=== PATIENT | male | born 1970 | race Caucasian/White ===

== ENCOUNTER → 2018-05-20 12:54 | Outpatient (CLI) | payer BC, SELFPAY ==
--- NOTE | 2018-05-20 13:09 | RAD_ITS ---
STUDY: X-RAY CHEST REASON FOR EXAM: Male, 47 years old. 5 day history of cough. TECHNIQUE: PA and lateral views of the chest. COMPARISON: None. FINDINGS: Right upper lobe consolidation into both the right upper lobe pneumonia. Mild increased markings are also seen in the right infrahilar region. There is no demonstrated pleural abnormality. Normal size heart. Normal mediastinum and leticia. Normal visualized pulmonary arteries. Normal visualized aortic arch and descending thoracic aorta. Normal visualized thoracic spine. Normal visualized ribs, clavicles, and shoulders. There is no demonstrated abnormality of the visualized soft tissue structures of the upper abdomen. RAD/Chest PA and Lateral IMPRESSION: Right upper lobe consolidation. Increased markings in the right infrahilar region. Follow-up is recommended. Electronically Signed: Jayro Parra MD at 13:35 EDT Tel [phone], Service support ,
[2018-05-20 13:57] LABS: Absolute Neutrophil Count 6.1 X10^3/uL (2.0-7.7); Basophil# 0.02 X10^3/uL; Basophil% 0.2 % (0-1); Eosinophil# 0.02 X10^3/uL; Eosinophils% 0.2 % (0-5); Hematocrit 38.6 % (40-54); Hemoglobin 13.7 g/dl (13.0-16.5); Mean Corp Hgb Conc 35.5 g/gl (32-36); Mean Corpuscular Hgb 31.1 pg (27.0-32.0); Mean Corpuscular Volume 87.7 fL (80-94); Mean Platelet Vol. 9.1 fl (6.2-12.0); Monocyte# 1.28 X10^3/uL; Monocyte% 15.1 % (0-10); Neutrophil # 6.05 X10^3/uL (2.7-7.7); Neutrophil % 71.4 % (47-70); Platelet Count 174 K/mm3 (150-450); RBC Distribution Width CV 12.4 % (11.6-14.6); RBC Distribution Width SD 39.2 fl (35.1-43.9); White Blood Count 8.5 K/mm3 (4.4-11.0)
[2018-05-20 13:58] LABS: POSITIVE COUNT NO; POSITIVE DIFFERENTIAL NO; POSITIVE MORPHOLOGY NO
== END ==
PROVIDERS: Family Provider Family Medicine; PCP Family Medicine; Visit Provider Family Medicine
DX: R05 Cough (principal); R50.9 Fever, unspecified
CPT/HCPCS: 36415; 71046; 85025; 87804

== ENCOUNTER → 2019-03-04 | Outpatient (CLI) | payer BC, SELFPAY ==
[2018-12-03 15:51] VITALS: BMI 27.8
--- NOTE | 2019-03-04 09:52 | PFTCOMP ---
COMPLETE PULMONARY FUNCTION TEST INTERPRETATION Brief HPI: Patient is a 48 year old male, currently under the care of myself, who presents to [facility] for complete pulmonary function tests secondary to diagnosis of dyspnea on exertion. Respiratory therapist reports good effort and reproducible results. Interpretation: Forced expiration spirometry shows no large airways obstructive ventilatory defect with an FEV1 of 94% predicted. There is no significant bronchodilator response by strict ATS criteria. Spirograms are of good quality and plateau normally. The respiratory flow volume loop shows a normal pattern. Lung volumes by body plethysmography show a normal total lung capacity at 5.88 L, 86% predicted. All other lung volumes are within normal limits. Diffusion capacity by carbon monoxide is normal at 114% predicted. The airway resistance is normal. No previous pulmonary function tests were available for review. Impression: Essentially normal PFT. Lung volumes are at the lower limit of normal with preserved diffusion capacity, so early musculoskeletal limitation cannot be excluded.
--- NOTE | 2019-03-04 09:55 | PFTCOMP_ITS ---
COMPLETE PULMONARY FUNCTION TEST INTERPRETATION Brief HPI: Patient is a 48 year old male, currently under the care of myself, who presents to [facility] for complete pulmonary function tests secondary to diagnosis of dyspnea on exertion. Respiratory therapist reports good effort and reproducible results. Interpretation: Forced expiration spirometry shows no large airways obstructive ventilatory defect with an FEV1 of 94% predicted. There is no significant bronchodilator re sponse by strict ATS criteria. Spirograms are of good quality and plateau normally. The respiratory flow volume loop shows a normal pattern. Lung volumes by body plethysmography show a normal total lung capacity at 5.88 L, 86% predicted. All other lung volumes are within normal limits. Diffusion capacity by carbon monoxide is normal at 114% predicted. The airway resistance is normal. No previous pulmonary function tests were available for review. Impression: Essentially normal PFT. Lung volumes are at the lower limit of normal with preserved diffusion capacity, so early musculoskeletal limitation cannot be excluded.
[2019-03-08 09:06] LABS: Testosterone, Free 14.47 ng/dL (5.00-21.00)
[2019-03-08 11:48] LABS: Testosterone, % Free 2.65 % (1.50-4.20); Testosterone, Total 546 ng/dL (264-916)
== END | disposition home or self-care (01) ==
PROVIDERS: Family Provider Family Medicine; PCP Family Medicine; Referring Provider Family Medicine; Visit Provider Family Medicine
DX: R06.00 Dyspnea, unspecified (principal); R53.83 Other fatigue; F32.9 Major depressive disorder, single episode, unspecified
CPT/HCPCS: 36415; 84402; 84403; 94060; 94726; 94729

== ENCOUNTER → 2021-07-25 14:04 | Outpatient (CLI) | payer OTHER, SELFPAY ==
[2021-07-16 16:24] VITALS: BMI 26.9
--- NOTE | 2021-07-25 14:08 | ECHOD_ITS ---
Reason For Study: Possible Bicuspid AV Procedure This was a 2D Doppler, Color Flow transthoracic echocardiogram. The exam was of adequate technical quality. Exam performed in department. Left Ventricle Normal LV size. Left ventricular systolic function is normal. The estimated ejection fraction is 60 %. No evidence for diastolic dysfunction. No regional wall motion abnormalities noted. Right Ventricle Normal RV size. Normal systolic function. Atria The left atrium is mildly enlarged. The right atrium is mildly enlarged. No doppler evidence for ASD. Mitral Valve There is no mitral annular calcification. Normal mitral valve. Trivial mitral valve insufficiency. Tricuspid Valve Normal tricuspid valve. Mild tricuspid valve insufficiency. Right ventricular systolic pressure estimated to be 19 mmHg. Aortic Valve Trisinus/trileaflet aortic valve. Mild focal aortic valve thickening. Mild focal aortic valve calcification. Pulmonic Valve The pulmonic valve is not well visualized. Mild (1+) pulmonic valve insufficiency. Great Vessels The aortic root is not well visualized. Pericardium/Pleural No pericardial effusion. MMode/2D Measurements & Calculations LVIDd: 5.5 cm IVSd: 1.2 cm LA dimension: 4.3 cm LVIDs: 3.5 cm LVPWd: 0.82 cm RVDd: 4.3 cm FS: 37.1 % LAV(MOD-bp): 69.8 ml LA A4 area: 22.0 cm2 RA A4 area: 21.2 cm2 LAV(MOD-bp) Indexed: 34.6 ml/m2 LAV(MOD-sp2): 63.0 ml LAV(MOD-sp4): 68.3 ml Time Measurements MV dec time: 0.23 sec Doppler Measurements & Calculations MV E max josh: 93.6 cm/sec Lat Peak E' Josh: 12.3 cm/sec Med Peak E' Josh: 10.4 cm/sec MV A max josh: 66.1 cm/sec E/E' lat: 7.6 E/E' med: 9.0 MV E/A: 1.4 MV V2 max: 94.5 cm/sec MV P1/2t max josh: 94.5 cm/sec Ao V2 max: 123.1 cm/sec MV max P.6 mmHg MV P1/2t: 111.6 msec Ao max P.1 mmHg MV V2 mean: 41.5 cm/sec MV dec slope: 247.9 cm/sec2 MV mean P.86 mmHg MVA(P1/2t): 2.0 cm2 MV V2 VTI: 33.9 cm LV V1 max: 102.7 cm/sec PA V2 max: 119.4 cm/sec TR max josh: 198.8 cm/sec LV V1 max P.2 mmHg TR max P.8 mmHg ECHO/Echo Complete Interpretation Summary Left ventricular systolic function is normal. The estimated ejection fraction is 60 %. The left atrium is mildly enlarged. The right atrium is mildly enlarged. Trivial mitral valve insufficiency. Mild tricuspid valve insufficiency. Mild (1+) pulmonic valve insufficiency. Right ventricular systolic pressure estimated to be 19 mmHg. No evidence for diastolic dysfunction. Comment: Based upon the 2D echocardiographic images obtained there appears to b e a tricuspid appearing aortic valve with mild thickening and calcification involving the non coronary cusp. Ordering Physician: Lee Tate Referring Physician: Chepe Logan Performed By: Bill Anthony RCS
== END ==
PROVIDERS: PCP Family Medicine; Referring Provider Internal Medicine Cardiovascular Disease; Visit Provider Internal Medicine Cardiovascular Disease
DX: R55 Syncope and collapse (principal); Z86.79 Personal history of other diseases of the circulatory system
CPT/HCPCS: 93306

== ENCOUNTER → 2021-09-28 | Outpatient (CLI) | payer OTHER, SELFPAY ==
[2021-11-11 16:05] LABS: Source Not Provided
== END | disposition home or self-care (01) ==
PROVIDERS: PCP Family Medicine; Referring Provider Family Medicine; Visit Provider Family Medicine
DX: N20.9 Urinary calculus, unspecified (principal)
CPT/HCPCS: 82360

== ENCOUNTER → 2021-10-11 08:36 | Outpatient (CLI) | payer OTHER, SELFPAY ==
[2021-10-11 10:04] LABS: PTHIN 18.6 pg/mL (18.4-80.1)
[2021-10-11 10:07] LABS: Vitamin D,25 Hydroxy 33.8 ng/mL
[2021-10-14 10:38] LABS: Vitamin D 1,25-Dihydroxy 48.5 pg/mL (19.9-79.3)
== END ==
PROVIDERS: PCP Family Medicine; Referring Provider Family Medicine; Visit Provider Family Medicine
DX: E83.52 Hypercalcemia (principal)
CPT/HCPCS: 36415; 82306; 82330; 82652; 83970

== ENCOUNTER 2022-06-30 21:02 | Emergency (ER) | payer OTHER, SELFPAY ==
[2022-06-30 21:03] VITALS: BP 130/85; PULSE 55; RESP 16; TEMP 36.3; O2SAT 100; BMI 26.4
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
--- NOTE | 2022-06-30 21:20 | RAD_ITS ---
INDICATION: trauma. attention left long finger EXAMINATION/TECHNIQUE: X-RAY - LEFT XR Hand Min 3 Views 3 VIEWS COMPARISON: None. FINDINGS: SOFT TISSUES: Mild soft tissue swelling third finger. No radiopaque foreign body. BONES/JOINTS: Dorsal dislocation base of the middle phalanx third finger positioned posterior to the proximal phalangeal head. No visible fracture or fracture fragment at this time. Preservation of the joint space and no degenerative bony proliferative changes. No sclerotic or destructive changes observed. RAD/Hand Min 3 Views IMPRESSION: Third finger proximal interphalangeal joint dorsal dislocation. Recommend repeat x-rays following relocation. Electronically Signed: Fermin Cortés DO at 21:55 EDT ,
[2022-06-30] MEDS: Ibuprofen 600 MG Tablet PO (21:21)
== END 2022-06-30 21:46 | disposition home or self-care (01) ==
PROVIDERS: Emergency Provider Emergency Medicine; PCP Family Medicine; Visit Provider Emergency Medicine
DX: S63.283A Dislocation of proximal interphalangeal joint of left middle finger, initial encounter (principal); S80.11XA Contusion of right lower leg, initial encounter; F90.9 Attention-deficit hyperactivity disorder, unspecified type; Q23.1 Congenital insufficiency of aortic valve; V86.05XA Driver of 3- or 4- wheeled all-terrain vehicle (ATV) injured in traffic accident, initial encounter
CPT/HCPCS: 26770; 73130; 99283

== ENCOUNTER → 2023-10-02 | Outpatient (CLI) | payer OTHER, SELFPAY ==
[2023-10-02 12:09] LABS: Absolute Lymphocyte Count 1.32 X10^3/uL (0.83-4.51); Absolute Neutrophil Count 3.9 X10^3/uL (2.0-7.7); Basophil# 0.06 X10^3/uL; Basophil% 0.9 % (0-1); Eosinophil# 0.43 X10^3/uL; Eosinophils% 6.7 % (0-5); Hematocrit 43.2 % (40-54); Hemoglobin 14.4 g/dL (13.0-16.5); Lymphocyte # 1.32 X10^3/ul (0.83-4.51); Lymphocyte % 20.5 % (19-41); Mean Corp Hgb Conc 33.3 g/dL (32-36); Mean Corpuscular Hgb 30.9 pg (27.0-32.0); Mean Corpuscular Volume 92.7 fL (80-94); Mean Platelet Vol. 9.5 fl (6.2-12.0); Monocyte# 0.65 X10^3/uL; Monocyte% 10.1 % (0-10); NRBC Flagged by Analyzer 0 % (0-5); Neutrophil # 3.86 X10^3/uL (2.7-7.7); Neutrophil % 59.9 % (47-70); Platelet Count 266 K/mm3 (150-450); RBC Distribution Width CV 12.3 % (11.6-14.6); RBC Distribution Width SD 41.9 fl (35.1-43.9); Red Blood Count 4.66 M/mm3 (4.6-6.2); White Blood Count 6.4 K/mm3 (4.4-11.0)
[2023-10-02 12:49] LABS: ALB/GLOB Ratio 1.1 RATIO (0.9-2.4); AST(SGOT) 21 U/L (15-37); Alanine Aminotransfer ALT/SGPT 30 U/L (16-61); Albumin, Serum 3.9 g/dL (3.2-5.0); Alkaline Phosphatase 65 U/L (45-117); Anion Gap 4 (5-15); BUN 18 mg/dL (7-18); Calcium,Total 9.1 mg/dL (8.5-10.1); Chloride 104 mmol/L (98-107); Cholesterol 195 mg/dL (200); Creatinine, Serum 0.95 mg/dL (0.70-1.30); EST Glomerular Filtration Rate 89 mL/min (>60); Est Glom Filt Rate - Afr Amer 108 mL/min (>60); Globulin 3.7 g/dL (2.2-4.2); Glucose 95 mg/dL (74-106); High Density Lipoprotein 52 mg/dL; PSA,Total - Annual Screen 0.43 ng/mL (0.00-4.00); Potassium 4.1 mmol/L (3.5-5.1); Protein, Total 7.6 g/dL (6.4-8.2); Sodium Level 139 mmol/L (136-145); Triglycerides 50 mg/dL; Very Low Density Lipoprotein 10 mg/dL (5-40)
== END | disposition home or self-care (01) ==
LOC: BFHLAB 09:57
PROVIDERS: PCP Family Medicine; Referring Provider Family Medicine; Visit Provider Family Medicine
DX: Z00.00 Encounter for general adult medical examination without abnormal findings (principal); Z12.5 Encounter for screening for malignant neoplasm of prostate
CPT/HCPCS: 36415; 80053; 80061; 84153; 85025; G0103

== ENCOUNTER 2024-01-13 08:30 | Day surgery (SDC) | payer OTHER, SELFPAY ==
[2024-01-13] VITALS (7 sets, daily range): BP systolic 84–150; BP diastolic 46–94; PULSE 58–67; RESP 16; TEMP 36.1–36.5; O2SAT 96–100; BMI 26.5
--- NOTE | 2024-01-13 08:50 | H&P.OPEN ---
[facility] - General General Date of Service: 01/13/24 [facility] Narrative HOA MCCLAIN, is a 53 M who presents for screening colonoscopy. Patient denies any family history of colon cancer. Patient has bowel movements daily denies any blood. Patient denies any chronic abdominal pain nausea or vomiting, reflux. [facility] Medical History (Updated 01/12/24 @ 08:00 by Rylee Glasgow) ADHD (attention deficit hyperactivity disorder) Alcohol use Asthma Bicuspid aortic valve Cardiology follow-up encounter Glaucoma History of atrial fibrillation History of echocardiogram History of stress test History of varicocele Kidney stones Non-smoker Seasonal allergies Wears glasses Home Medications multivitamin 1 tab PO QDAY 11/17/17 [History Last Taken Unknown] albuterol sulfate 90 mcg/actuation aerosol inhaler (ProAir HFA) 2 puff inhalation DAILY PRN shortness of breath or wheezing 03/02/20 [History Last Taken Unknown] loratadine 10 mg tablet (Claritin) 10 mg PO QDAY 03/02/20 [History Last Taken Unknown] montelukast 10 mg tablet 10 mg PO DAILY 07/17/22 [History Last Taken Unknown] omega 3-dee-kyt-fish oil 60 mg-90 mg-500 mg capsule (Fish Oil) 1 cap PO DAILY 07/17/22 [History Last Taken 01/05/24] budesonide-formoterol HFA 80 mcg-4.5 mcg/actuation aerosol inhaler (Symbicort) 2 puff inhalation DAILY PRN SOB 12/09/23 [History Last Taken Unknown] Allergy/AdvReac Type Severity Reaction Status Date / Time No Known Allergies Allergy Verified 01/13/24 08:55 Family History (Updated 12/09/23 @ 14:01 by Jada Tavarez) Mother Depression Sister Breast cancer Grandfather CAD (coronary artery disease) CABG Father Colon polyps Surgical History (Updated 01/12/24 @ 08:00 by Rylee Glasgow) History of vasectomy Social History (Updated 12/09/23 @ 14:02 by Jada Tavarez) household members: spouse and children current occupational status: employed current occupation: works in [employer] Smoking Status: Never smoker alcohol intake: current alcohol intake frequency: holidays/special occasions only details: occasional substance use type: does not use Past Medical/Surgical History Planned Operation Planned Operative Procedure/s: COLONOSCOPY-OA Previous Hospitalizations/Surgeries HX Hospitalizations: No Any Problems With Anesthesia: No You/Your Family Experience Fever (Hyperthermia) With Anes: No Cholinesterase deficiency: No Cardiovascular Hx Hypertension: No Respiratory Hx Sleep Apnea: No Hx Respiratory Tract Infection/Cold (presently): No Do You Snore Loudly (louder than talking or can be heard): No Do You Often Feel Tired/ Fatigued/ Sleepy Dring Daytime?: No Has Anyone Observed You Stop Breathing During Sleep?: No Result (for STOP score): Negative Smoking Status: Never smoker Neurological Does patient have nerve stimulator: No Allergies No Known Allergies Allergy (Verified 01/13/24 08:55) Discharge Is Pt Admitted From a Senior Living, or a [facility]: No After D/C, Where Do you Plan to Go: Return Home Physical Exam Const alert, oriented x3 and no apparent distress HEENT normocephalic and head/scalp atraumatic Resp normal respiratory effort Cardio regular rate GI soft to palpation and non-tender; Negative for non-distended Palpation: Negative for guarding Extremity no clubbing, cyanosis or edema Skin no rashes or lesions noted Neuro CN's II-XII intact bilaterally Psych mental status grossly normal Assessment & Plan Assessment/Plan (1) Encounter for screening for malignant neoplasm of colon: Surgery Risks - Colonoscopy I discussed with the patient the risks of the procedure: Yes Risks Include but are not Limited To: Risks include but are not limited to: Bleeding, perforation requiring further surgery, inability to complete colonoscopy requiring barium enema.
--- OUTSIDE RECORDS SUMMARY | 2024-01-13 08:53 | XMS RPT_ITS | CCD ---
Author Name Unknown Address [address] [place] [address] [address] [place] [address] Organization [facility] Care Team Providers Care Form Layer Name Role Phone Dell Logan DO Primary Care Provider TONIO TEAGUE II Attending UnavailDELL Muniz Primary Care Unavailable Medications Current Medications Medication Drug Class(es) Dates Sig (Normalized) Sig (Original) tropicamide 5 mg/ml ophthalmic solution (1 source) Anticholinergic Start: 08-17-2022 End: 08-17-2022 tropicamide 0.5 % 1 Drop (MYDRIACYL) Completed/Discontinued Medications Medication Drug Class(es) Dates Sig (Normalized) Sig (Original) docosahexaenoic acid/epa (FISH OIL ORAL) (1 source) docosahexaenoic acid/epa (FISH OIL ORAL) Take by mouth. 0 Active Problems Problem Classification Problem Date Documented Da te Episodic/Chronic Blindness and vision defects (5 sources) Presbyopia; Translations: [Presbyopia] Onset: 06-10-2017 Episodic Glaucoma (2 sources) Preglaucoma, unspecified, bilateral; Translations: [Preglaucoma, unspecified] Onset: 06-10-2017 Chronic Results Test Name Value Interpretation Reference Range Facil ity Encounters Encounter Date Encounter Type Care Provider Facility Start: 08-17-2022 End: 08-17-2022 ambulatory TONIO TEAGUE II Facility:[facility] Start: 08-17-2022 End: 08-17-2022 Patient encounter procedure Tonio Teague OD Work Phone: Optometry Procedures Date Procedure Procedure Detail Performing Clinician Start: 08-17-2022 Computerized ophthal pancho imaging optic nerve Tonio Teague OD Work Phone: Plan of Treatment Date Care Activity Detail Author Start: 08-01-2022 Influenza vaccination INFLUENZA (#1) [facility] Start: 2017 COLOGUARD (FIT-DNA) COLOGUARD (FIT-D NA) [facility] Start: 2017 Colonoscopy COLONOSCOPY [facility] Start: 2017 COLORECTAL CANCER SCREENING COLORECTAL CANCER SCREENING [facility] Start: [address] COLONOGRAPHY [facility] Start: 2017 DIABETES SCREEN DIABETES SCREEN [facility] Start: 2017 FECAL OCCULT BLOOD FECAL OCCULT BLOO D [facility] Start: 2017 SIGMOIDOSCOPY SIGMOIDOSCOPY [facility] Start: 2007 LIPID SCREEN LIPID SCREEN [facility] Start: 1991 Urine microalbumin profile DTAP,TDAP ,TD (1 - Tdap) [facility] Start: 1990 HEPATITIS C SCREENING HEPATITIS C SC REENING [facility] Start: 1990 HIV SCREENING HIV SCREENING [facility] Start: 1984 Adult depression scr eening assessment DEPRESSION SCREENING [facility] Start: 06-21-1973 COVID-19 VACCINE (#1) COVID-19 VACCI NE (#1) [facility] Start: 1970 HEPATITIS B (1 of 3 - 3-dose series) HEPATITIS B (1 of 3 - 3-dose series) [facility] Payers Date Payer Category Payer Unknown [employer] P[employer] [id number] 2021-Present [phone] [address] [place] [address] PPO [id number] 2021 Unknown [id number] Social History Date Type Detail Facility Start: 06-10-2017 Tobacco smoking stat us MAIS Never smoked tobacco [facility] Start: 06-10-2017 Tobacco use and exposure Smoke less tobacco non-user [facility] Start: 08-17-2022 Alcohol intake Current drinke r of alcohol (finding) [facility] Start: 05-16-2020 History SDOH Alcohol Comment moderate [facility] Start: 1970 Sex Assigned At Not on file [facility] Start: 08-07-2022 End: 08-17-2022 Exposure to SARS-CoV-2 (event) Not sure [facility] Progress note 08-17-2022 Note Date & Type Note Facility 08-17-2022 Note HNO ID: [id number] Author: Tonio Teague II, OD Service: ? Author Type: CORPORATE SALES MANAGER Type: Progress Notes Filed: 08/17/2022 11:43 AM Note Text: Assessment and Plan H40.003 Glaucoma suspect of both eyes (primary encounter diagnosis) Comment: Glaucoma suspect both eyes due to optic nerve cupping. Stable nerve fiber layers in areas scanned today. Monitor yearly. No treatment indicated at this time. Discussed need for continued close observation to minimize chance of future vision loss. 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 Patient prefers OTC NVO glasses to multifocals. I have confirmed and edited as necessary the relevant ophthalmic history, ROS, and the neuro exam findings as obtained by others. I have seen and examined Eriberto Brenner Johny. I have discussed the case and the management of this patient's care with the Resident/Fellow, if applicable. I also have reviewed and agree with the assessment and plan as stated above and agree with all of its relevant components. Tonio Teague II, OD [facility] Instructions 08-17-2022 Patient Instructions Note Date & Type Note Facility 08-17-2022 Instructions Tonio Teague II, OD - 08/17/2022 11:43 AM EDT Assessment and Plan H40.003 Glaucoma suspect of both eyes (primary encounter diagnosis) Comment: Glaucoma suspect both eyes due to optic nerve cupping. Stable nerve fiber layers in areas scanned today. Monitor yearly. No treatment indicated at this time. Discussed need for continued close observation to minimize chance of future vision loss. 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 Patient prefers OTC NVO glasses to multifocals. I have confirmed and edited as necessary the relevant ophthalmic history, ROS, and the neuro exam findings as obtained by others. I have seen and examined Eriberto Brenner Johny. I have discussed the case and the management of this patient's care with the Resident/Fellow, if applicable. I also have reviewed and agree with the assessment and plan as stated above and agree with all of its relevant components. Tonio Teague II, OD documented in this encounter [facility] History of Present illness Narrative 08-17-2022 Tonio Teague II, OD - 08/17/2022 11:41 AM EDT Note Date & Type Note Facility 08-17-2022 History of Presen t illness Narrative Assessment and Plan H40.003 Glaucoma suspect of both eyes (primary encounter diagnosis) Comment: Glaucoma suspect both eyes due to optic nerve cupping. Stable nerve fiber layers in areas scanned today. Monitor yearly. No treatment indicated at this time. Discussed need for continued close observation to minimize chance of future vision loss. 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 Patient prefers OTC NVO glasses to multifocals. I have confirmed and edited as necessary the relevant ophthalmic history, ROS, and the neuro exam findings as obtained by others. I have seen and examined Eriberto Spangler. I have discussed the case and the management of this patient's care with the Resident/Fellow, if applicable. I also have reviewed and agree with the assessment and plan as stated above and agree with all of its relevant components. Tonio Teague II, OD documented in this encounter [facility] History of Past illness Narrative 06-10-2017 Note Date & Type Note Facility documented as of this encounter (statuses as of 08/17/2022) [facility] Evaluation note Note Date & Type Note Facility documented in this encounter [facility] Medications Administered Section Active Administered Medications - up to 3 most recent administrations Medication Order MAR Action Action Date Dose Rate Site tropicamide 0.5 % 1 Drop (MYDRIACYL) 1 Drop, BOTH EYES, DIRECTED, Starting on 08/17/22 at 1200, Until 08/17/22 at 2359, Administer for dilation Given 08/17/2022 12:00 PM EDT 1 Drop Summary Purpose Family History No Family History Records Found Advance Directives No Advanced Directives Records Found Additional Source Comments Source Comments (unrecognize d section and content) In the event this informatio n is protected by the Federal Confidentiality of Alcohol and Drug Abuse Patient Records regulations: The Federal rules restrict any use of the information to criminally investigate or prosecute any alcohol or drug abuse patient.[facility] Reason for Visit (unrecogniz ed section and content) Specialty Diagnoses / Procedures Referred By Alyssa aguilar Referred To Contact Optometry / OPHTHALMOLOGY Diagnoses Preglaucoma, unspecified, bilateral Glaucoma Procedures OFFICE/OUTPATIENT ESTABLISHED LOW MDM 20-29 MIN COMPUTERIZED OPHTHALMIC IMAGING OPTIC NERVE OFFICE/OUTPATIENT ESTABLISHED MOD MDM 30-39 MIN EST ADULTexam and OCT Self Tonio Teague II, OD [address] [id number] Referral ID Status Reason Start Date Expiration Date V isits Requested Visits Authorized [id number] Authorized 08/08/2022 08/08/2023 4 4 Care Teams (unrecognized sec tion and content) (unrecognized sect ion and content) No Status Records Found INFORMATION SOURCE (unrecogn ized section and content) FOR RECORDS PERTAINING TO PATIENTS WHO ARE OR HAVE BEEN ENROLLED IN A CHEMICAL DEPENDENCY/SUBSTANCEABUSE PROGRAM, SOME INFORMATION MAY BE OMITTED. This clinical summary was aggregated from multiple sources. Caution should be exercised in using it in the provision of clinical care. This summary normalizes information from multiple sources, and as a consequence, information in this document may materially change the coding, format and clinical context of patient data. In addition, data may be omitted in some cases. CLINICAL DECISIONS SHOULD BE BASED ON THE PRIMARY CLINICAL RECORDS. [facility] [facility]. provides no warranty or guarantee of the accuracy or completeness of information in this document.
[2024-01-13] MEDS: Lactated Ringers 1,000 ML 15 ML IV (09:01)
--- NOTE | 2024-01-13 10:03 | OP.COLON_ITS ---
Patient Name: Eriberto Spangler Procedure Date: 01/13/2024 9:29 AM Date of : 1970 Age: 53 Procedure: Colonoscopy Indications: Screening for colorectal malignant neoplasm Providers: Rosa Gale MD Medicines: Monitored Anesthesia Care Patient Profile: This is a 53 year old male. Last Colonoscopy: none. The patient's first colonoscopy is today. Complications: No immediate complications. Procedure: Pre-Anesthesia Assessment: - Prior to the procedure, a History and Physical was performed, and patient medications and allergies were reviewed. The patient's tolerance of previous anesthesia was also reviewed. The risks and benefits of the procedure and the sedation options and risks were discussed with the patient. All questions were answered, and informed consent was obtained. Prior Anticoagulants: The patient has taken no anticoagulant or antiplatelet agents. ASA Grade Assessment: Per anesthesia. After reviewing the risks and benefits, the patient was deemed in satisfactory condition to undergo the procedure. After I obtained informed consent, the scope was passed under direct vision. Throughout the procedure, the patient's blood pressure, pulse, and oxygen saturations were monitored continuously. The Colonoscope was introduced through the anus and advanced to the cecum, identified by the appendiceal orifice, ileocecal valve and palpation. The colonoscopy was performed without difficulty. The patient tolerated the procedure well. The quality of the bowel preparation was good. Scope In: 9:38:17 AM Scope Withdrawal Time 0 hours 6 minutes 24 seconds Scope Out: 9:51:00 AM Total Procedure Duration Time 0 hours 12 minutes 43 seconds Findings: Non-bleeding internal hemorrhoids were found. The hemorrhoids were Grade I (internal hemorrhoids that do not prolapse). The entire examined colon appeared normal. Impression: - Non-bleeding internal hemorrhoids. - The entire examined colon is normal. - No specimens collected. Recommendation: - Discharge patient to home. - Resume previous diet. - Continue present medications. - Repeat colonoscopy in 10 years for screening purposes. Procedure Code(s): --- Professional --- G0121, PT, Colorectal cancer screening; colonoscopy on individual not meeting criteria for high risk Diagnosis Code(s): --- Professional --- Z12.11, Encounter for screening for malignant neoplasm of colon K64.0, First degree hemorrhoids CPT copyright 2021 [employer]. All rights reserved. The codes documented in this report are preliminary and upon glue maker review may be revised to meet current compliance requirements. MD Rosa Eaton MD 01/13/2024 10:03:01 AM This report has been signed electronically. Number of Addenda: 0 Note Initiated On: 01/13/2024 9:29 AM
--- NOTE | 2024-01-13 10:03 | OP.CCLET_ITS ---
01/13/2024 Chepe Logan [address] [place] [address] Re : Colonoscopy procedure for Eriberto Crys Dear Dr. Logan This procedure was performed on Saturday, January 13, 2024. My impressions and recommendations are as follows: Impressions : - Non-bleeding internal hemorrhoids. - The entire examined colon is normal. - No specimens collected. Recommendations : - Discharge patient to home. - Resume previous diet. - Continue present medications. - Repeat colonoscopy in 10 years for screening purposes. My findings are described in the full procedure note, which is enclosed. If I can be of further assistance, please feel free to contact me at Doctor phone number(s): , Work: . Sincerely, MD Rosa Eaton MD 01/13/2024 10:03:01 AM This report has been signed electronically.
== END 2024-01-13 10:43 | disposition home or self-care (01) ==
LOC: EN 08:32 → AC 08:33
PROVIDERS: PCP Family Medicine; Referring Provider Family Medicine; Visit Provider Surgery
PROC: 0DJD8ZZ Inspection of Lower Intestinal Tract, Via Natural or Artificial Opening Endoscopic (ICD-10-PCS; CPT 45378; principal; 2024-01-13 09:40)
DX: Z12.11 Encounter for screening for malignant neoplasm of colon (principal); I48.91 Unspecified atrial fibrillation; Z79.51 Long term (current) use of inhaled steroids; J45.909 Unspecified asthma, uncomplicated; Z98.52 Vasectomy status; K64.0 First degree hemorrhoids
CPT/HCPCS: 45378; J7120; J2405